=== PATIENT | female | born 1995 | race Caucasian/White ===

== ENCOUNTER 2024-06-06 05:22 | Inpatient (IN) | payer OTHER ==
[2024-06-03 11:21] LABS: Hematocrit 33.1 % (34.9-44.5); Hemoglobin 10.8 g/dL (12.0-15.5); Platelet Count 313 10x3/uL (150-450)
[2024-06-03 11:54] LABS: HBsAg Index 0.18 S/CO (0-0.99); Hep B Surf Ag Non-Reactive S/CO (NonReactive)
[2024-06-03 11:55] LABS: Syphilis Antibody Nonreactive (Nonreactive); Syphilis Antibody Index 0.04 S/CO (<1.00 Non-Reactive)
[2024-06-06] MEDS ORDERED: Carboprost 250 MCG/ML AMP IM PRN (06:13)
[2024-06-06] MEDS ORDERED: Oxytocin 30 units/NS 500 ML 500 ML IV SCH (06:13)
[2024-06-06] MEDS ORDERED: Bicitra 30 ML UDCUP PO PRN (06:13)
[2024-06-06] MEDS ORDERED: Lactated Ringer's 1,000 ML IV SCH (06:13)
[2024-06-06] MEDS ORDERED: Methylergonovine 0.2 MG/ML VIAL IM PRN (06:13)
[2024-06-06] MEDS ORDERED: Promethazine HCl 25 MG/ML VIAL IM PRN ×2 (06:13→09:12)
[2024-06-06] MEDS ORDERED: Misoprostol 200 MCG TAB PR PRN (06:13)
[2024-06-06] MEDS ORDERED: Diphenoxylate HCl/Atropine Tablet PO PRN ×2 (06:13)
[2024-06-06] MEDS ORDERED: Ondansetron PF 4 MG/2 ML Vial IVP PRN ×3 (06:13→09:12)
[2024-06-06] MEDS ORDERED: hydrALAZINE 20 MG/ML VIAL SLOW IVP PRN ×2 (06:13→10:48)
[2024-06-06 06:18] VITALS: BMI 31.3
[2024-06-06] MEDS: Famotidine/PF 20 mg/2ml Vial SLOW IVP PRN (07:13)
[2024-06-06] MEDS: CEFAZOLIN 2 GM in Sodium Chloride 0.9% 100 ML IVPB SCH (07:13)
[2024-06-06] MEDS ORDERED: diphenhydrAMINE 50 MG/ML VIAL IVP PRN (09:12)
[2024-06-06] MEDS ORDERED: Naloxone HCl 0.4 mg/ml Vial IVP PRN ×2 (09:12)
[2024-06-06] MEDS ORDERED: Naloxone HCl 0.4 mg/ml Vial IV PRN (09:12)
[2024-06-06] MEDS ORDERED: Moisturizing Cream (Eucerin) 113 GM JAR TOP PRN (09:12)
[2024-06-06] MEDS ORDERED: Meperidine HCl/PF 25 MG (1 mL) VIAL SLOW IVP PRN (09:12)
[2024-06-06] MEDS ORDERED: Communication Order-Pharmacy FS SCH (09:15)
[2024-06-06] MEDS ORDERED: Morphine 4 MG/ML VIAL SLOW IVP PRN (10:45)
[2024-06-06] MEDS ORDERED: Bisacodyl 10 MG SUPP PR PRN (10:48)
[2024-06-06] MEDS ORDERED: Lanolin Ointment 7 GM TUBE TOP PRN (10:48)
[2024-06-06] MEDS: fentaNYL 50 mcg/mL 1 mL Vial SLOW IVP PRN ×2 (11:03→12:35)
[2024-06-06] MEDS: Hepatitis B Vaccine 10 MCG/0.5 ML SYR ONE (11:46)
[2024-06-06] MEDS: Erythromycin Base 0.5% Oint 1 GM TUBE ONE (11:46)
[2024-06-06] MEDS: Phytonadione Neonatal 1 MG/0.5 ML AMP ONE (11:47)
[2024-06-06] MEDS: Dexmedetomidine 200 MCG/2 ML VIAL ONE (11:47)
[2024-06-06] MEDS: Ondansetron PF 4 MG/2 ML Vial ONE (11:47)
[2024-06-06] MEDS: PHENYLEPHRINE-NS 100 MCG/ML 10 ML SYRINGE ONE ×3 (11:47→11:49)
[2024-06-06] MEDS: Morphine PF 10 MG/10 ML VIAL ONE (11:47)
[2024-06-06] MEDS: Oxytocin 10 UNITS/ML VIAL ONE ×2 (11:47→11:48)
[2024-06-06] MEDS: Dexamethasone 4 mg/ml Vial ONE (11:47)
[2024-06-06] MEDS: Ketorolac Tromethamine 30 MG (1 mL) VIAL ONE (11:48)
[2024-06-06] MEDS: Boostrix 0.5 ML (Tdap) VIAL (>/=7 yrs of age) IM ONE (11:49)
[2024-06-06] MEDS: Methylergonovine 0.2 MG/ML VIAL ONE (12:34)
[2024-06-06] MEDS: Methylergonovine 0.2 MG/ML VIAL IM SCH (12:36)
[2024-06-06] MEDS: Misoprostol 200 MCG TAB PO SCH ×2 (13:00→15:36)
[2024-06-06] MEDS: Ketorolac Tromethamine 30 MG (1 mL) VIAL IVP SCH ×2 (14:36→15:01)
[2024-06-06] MEDS: Morphine 4 MG/ML VIAL SLOW IVP PRN (16:39)
[2024-06-06] MEDS ORDERED: HYDROcodone/Acetaminophen 5/325 mg Tablet PO PRN (21:15)
[2024-06-06] MEDS: Docusate 100 MG CAP PO SCH (21:16)
[2024-06-06] MEDS: HYDROcodone/Acetaminophen 5/325 mg Tablet PO PRN (21:16)
[2024-06-07 03:53] LABS: Hematocrit 24.1 % (34.9-44.5); Hemoglobin 7.7 g/dL (12.0-15.5); Mean Corpuscular Hemoglobin 24.4 pg (27.0-33.0); Mean Corpuscular Volume 76.5 fL (81.6-98.3); Mean Platelet Volume 10.7 fL (7.4-10.4); Platelet Count 228 10x3/uL (150-450); Red Blood Cell (RBC) Count 3.15 10x6/uL (3.90-5.03); White Blood Cell (WBC) Count 12.4 10x3/uL (3.5-10.5)
[2024-06-07] MEDS: Prenatal Vitamin 1 TAB PO SCH (08:52)
[2024-06-07] MEDS: fentaNYL 50 mcg/mL 1 mL Vial SLOW IVP SCH (12:23)
[2024-06-07] MEDS: Guaifenesin DM 100-10/5 ML UDCUP PO PRN ×2 (13:05→17:59)
[2024-06-07] MEDS: Simethicone Chewable 80 MG TAB PO PRN (15:53)
[2024-06-07] MEDS: Ibuprofen 800 MG TAB PO SCH (15:53)
[2024-06-07] MEDS: Pseudoephedrine HCl 30 MG TAB PO SCH (17:58)
[2024-06-07 19:11] LABS: SARS-CoV-2 E Target Negative; SARS-CoV-2 N2 Target Negative; SARS-CoV-2 NAA Rapid Test Not Detected (NotDetected); SARS-CoV-2 RdRP gene Negative
[2024-06-08 07:48] VITALS: BP 104/54; TEMP 98.4
== END 2024-06-08 15:15 | disposition home or self-care (01) | DRG 788 ==
LOC: CSHLD 05:22 → CSHPP 11:10
PROVIDERS: ADMIT Obstetrics & Gynecology; ATTEND Obstetrics & Gynecology
PROC: 10D00Z1 Extraction of Products of Conception, Low, Open Approach (ICD-10-PCS; principal; 2024-06-06)
DX: O34.211 Maternal care for low transverse scar from previous cesarean delivery (principal); O24.429 Gestational diabetes mellitus in childbirth, unspecified control; O99.02 Anemia complicating childbirth; D64.9 Anemia, unspecified; Z3A.39 39 weeks gestation of pregnancy; Z37.0 Single live birth; Z88.0 Allergy status to penicillin; O71.89 Other specified obstetric trauma
CPT/HCPCS: 36416; 51702; 85014; 85018; 85027; 85049; 86780; 86850; 86900; 86901; 87340; C1889; J1100; J1885; J2210; J2270; J2274; J2405; J2590; J3010; J3490; S0028; U0002